=== PATIENT | male | born 1990 | race Hispanic/Latino ===

== ENCOUNTER 2016-08-11 02:15 | Emergency (ER) | payer OTHER ==
[~2016-08-11] VITALS: Ht 172.7 cm; Wt 80.2 kg
[2016-08-11 02:40] LABS: HEMATOCRIT 43.2 % (38.0-50.0); MCH 31.5 PG (29.0-34.0); MCHC 34.7 G/DL (30.0-36.0); MCV 90.8 FL (86-99); MEAN PLAT.VOLUME 11.1 uM^3 (9.0-12.4); PLATELET COUNT 173 K/uL (156-360); RBC DIS.WIDTH-CV 12.7 % (11.8-14.6); RBC DIS.WIDTH-SD 41.7 % (39-53); RED BLOOD COUNT 4.76 M/uL (4.00-5.50); WHITE BLOOD COUNT 6.2 K/uL (4.1-10.2)
[2016-08-11 02:53] LABS: CHLORIDE 106 mEq/L (99-109); POTASSIUM 3.7 mEq/L (3.7-5.4); SODIUM 139 mEq/L (136-147)
[2016-08-11 02:55] LABS: GLUCOSE 109 mg/dL (70-99)
[2016-08-11 02:56] LABS: ANION GAP 10 MEQ/L (2-14)
[2016-08-11 02:59] LABS: GFR ESTIMATE (CALCULATED) > 59 mL/min/; UREA NITROGEN (BUN) 15 mg/dL (9-23)
[2016-08-11 03:03] LABS: TROP-I INTERPRETATION NEGATIVE; TROPONIN-I < 0.01 ng/mL (0.0-0.30)
[2016-08-11 04:19] LABS: TOTAL BILIRUBIN 0.7 mg/dL (0.0-1.0)
[2016-08-11 04:20] LABS: ALKALINE PHOSPHATASE 75 IU/L (3-129)
[2016-08-11 04:22] LABS: DIRECT BILIRUBIN 0.3 mg/dL (0.0-0.3)
[2016-08-11 04:23] LABS: LIPASE 30 U/L (1.0-51.0)
[2016-08-11] MEDS ORDERED: ZOFRAN4 MG PO (04:45)
[2016-08-11 05:00] VITALS: BP 112/66
== END 2016-08-11 05:06 | disposition home or self-care (01) ==
LOC: EME 02:15
DX: K52.9 Noninfective gastroenteritis and colitis, unspecified (principal); R07.9 Chest pain, unspecified; F17.200 Nicotine dependence, unspecified, uncomplicated
CPT/HCPCS: 71020; 80048; 80076; 83690; 84484; 85027; 93005; 99281; 99284

== ENCOUNTER 2017-04-15 23:13 | Emergency (ER) | payer OTHER ==
[~2017-04-15] VITALS: Ht 172.7 cm; Wt 84.8 kg
[~2017-04-15 23:13] MED LIST: ZOFRAN4 MG PO
[2017-04-15 23:37] VITALS: BP 129/66
== END 2017-04-16 00:45 | disposition left against medical advice (07) ==
LOC: EME 23:13
DX: L29.9 Pruritus, unspecified (principal); R51 Headache; Z53.21 Procedure and treatment not carried out due to patient leaving prior to being seen by health care provider